=== PATIENT | female | born 1935 | race Caucasian/White ===

== ENCOUNTER 2018-10-30 14:19 | Emergency (ER) | payer OTHER ==
[~2018-10-30] VITALS: Ht 157.5 cm; Wt 68.0 kg
[2018-10-30 14:24] VITALS: Ht 157.5 cm; Wt 68.0 kg
--- NOTE | 2018-10-30 14:50 | ERD ---
ER Documentation Chief Complaint Chief Complaint dizziness since yesterday HPI The patient is a 83-year-old female, presenting to the ER because of dizziness last night when she laid down, questionable whether she passed out for a second. She denies similar symptom previously, complains of sensation of the room spinning, denies seizure, headache, neck pain, chest pain, dyspnea, abdominal pain, vomiting, dysuria, diarrhea. She does not smoke nor drink Past medical history: Hypertension Past surgical history: ROS All systems reviewed and are negative except as per history of present illness. Medications Home Meds Active Scripts Meclizine Hcl* (Antivert*) 12.5 Mg Tab, 25 MG PO Q6H PRN for DIZZINESS, #20 TAB Prov:JAZ BOYLE MD 10/30/18 Reported Medications Lisinopril* (Lisinopril*) 10 Mg Tablet, 10 MG PO DAILY, #30 TAB 10/30/18 Allergies Allergies: Coded Allergies: No Known Allergy (Unverified , 10/30/18) Physical Exam Vitals Vital Signs Date Temp Pulse Resp B/P (MAP) Pulse Ox O2 O2 Flow FiO2 Time Delivery Rate 10/30/18 52 20 153/64 99 Room Air 17:33 (93) 10/30/18 97.6 56 18 142/62 98 15:17 (88) 10/30/18 97.6 60 18 165/72 98 14:24 (103) Physical Exam Const: No acute distress. Head: Atraumatic. Eyes: Normal Conjunctiva. ENT: Normal External Ears, Nose and Mouth. Neck: Full range of motion. No meningismus. Resp: Clear to auscultation bilaterally. Cardio: Regular rate and rhythm. Abd: Soft, non distended, normal bowel sounds, non tender. Skin: No petechiae or rashes. Back: No midline or flank tenderness. Ext: No cyanosis, or edema. Neur: Awake and alert. No focal deficit Psych: Normal Mood and Affect. Result Diagram: 10/30/18 1512 10/30/18 1512 Results 24 hrs Laboratory Tests Test 10/30/18 15:12 10/30/18 15:15 White Blood Count 9.7 10^3/ul Red Blood Count 4.35 10^6/ul Hemoglobin 13.2 g/dl Hematocrit 39.8 % Mean Corpuscular Volume 91.5 fl Mean Corpuscular Hemoglobin 30.3 pg Mean Corpuscular Hemoglobin Concent 33.2 g/dl Red Cell Distribution Width 12.9 % Platelet Count 181 10^3/UL Mean Platelet Volume 10.7 fl Immature Granulocytes % 0.500 % Neutrophils % 68.3 % Lymphocytes % 21.1 % Monocytes % 9.2 % Eosinophils % 0.7 % Basophils % 0.2 % Nucleated Red Blood Cells % 0.0 /100WBC Immature Granulocytes # 0.050 10^3/ul Neutrophils # 6.6 10^3/ul Lymphocytes # 2.0 10^3/ul Monocytes # 0.9 10^3/ul Eosinophils # 0.1 10^3/ul Basophils # 0.0 10^3/ul Nucleated Red Blood Cells # 0.0 10^3/ul Sodium Level 144 mmol/L Potassium Level 3.9 mmol/L Chloride Level 107 mmol/L Carbon Dioxide Level 27 mmol/L Anion Gap 10 Blood Urea Nitrogen 17 mg/dl Creatinine 0.83 mg/dl Est Glomerular Filtrat Rate mL/min mL/min Glucose Level 120 mg/dl Calcium Level 8.9 mg/dl Troponin I < 0.012 ng/ml Bedside Glucose 105 mg/dL Current Medications Medications Dose Sig/Madi Start Time Status Last (Trade) Ordered Route PRN Stop Time Admin Dose Reason Admin Meclizine 25 mg ONCE ONCE 10/30/18 DC 10/30/18 HCl PO 15:30 15:12 (Antivert) 10/30/18 15:31 Procedures/[place] [address] Radiology Main Line: [phone] DIAGNOSTIC IMAGING REPORT Patient: GARFIELD ABDALLA : 1935 Age: 83 Sex: F MR #: [id number] DOS: 10/30/18 1506 Ordering MD: JAZ BOYLE MD Location: E/R Room/Bed: PROCEDURE: CT BRAIN WITHOUT CONTRAST. CLINICAL INDICATION: Syncope TECHNIQUE: A CT of the brain was performed on a multidetector high-resolution CT scanner utilizing axial imaging from the skull base through the vertex without IV contrast. Multiplanar reformatted images were made. Images were reviewed on a PACS workstation. The CTDIvol is 39.6 mGy and the DLP is 634.2 mGycm. One or more of the following dose reduction techniques were used: - Automated exposure control. - Adjustment of the mA and/or kV according to patient size. - Use of iterative reconstruction technique. DICOM images are available. COMPARISON: None FINDINGS: The posterior fossa structures are unremarkable. The sheldon, midbrain, and medulla appear to be with normal limits. There is no evidence of acute intracranial hemorrhage, infarct, or extra-axial fluid collection. No gross mass effect or midline shift. Cerebral sulci, cisternal spaces, and ventricles are prominent. Mild periventricular/subcortical white matter lucencies are noted. There are intracranial atherosclerotic calcifications. The visualized paranasal sinuses are clear. The mastoid air cells are well- aerated. The calvarium is unremarkable. IMPRESSION: 1. No evidence of acute intracranial hemorrhage, infarct, or extra-axial fluid collection. 2. 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 3. Intracranial atherosclerotic disease. 4. If clinical symptoms persist, consider follow-up MRI of the brain. RPTAT: AARR Physician Rosanna Date Time Electronically viewed and signed by Physician Rosanna on 10/30/2018 16:13 JL/ CC: JAZ BOYLE MD [id number] EKG: Read by emergency physician Rate/Rhythm: Sinus bradycardia 53 beats/min QRS, ST, T-waves: No ST elevation, no T inversion, sinus arrhythmia, LAD Impression: Abnormal EKG MEDICAL MAKING DECISION: The patient is a 83-year-old female, presenting with acute dizziness of unclear etiology, treated with Antivert 25 mg p.o. for dizziness with good response, is stable for outpatient follow-up The differential diagnoses considered include but are not limited to central causes such as cerebellar infarct, cerebellar hemorrhage, cerebellar tumor, acoustic neuroma, peripheral causes such as benign positional vertigo, labyrinthitis, medication, Meniere's disease. Departure Diagnosis: Primary Impression: Dizziness Condition: Good Comments She was discharged with Antivert I discussed the findings with the patient. I advised the patient to follow-up with the primary physician in about 1-2 days, sooner if needed and return if any concern. Disclaimer: Inadvertent spelling and grammatical errors are likely due to EHR/dictation software use and do not reflect on the overall quality of patient care. Also, please note that the electronic time recorded on this note does not necessarily reflect the actual time of the patient encounter. JAZ BOYLE MD Oct 30, 2018 14:50
[2018-10-30] MEDS ORDERED: MECLIZINE 12.5 MG TAB PO ONE (15:30)
[2018-10-30] MEDS ORDERED: LISI10TA2 PO (15:49)
[2018-10-30] MEDS ORDERED: MECL12.574 PO (17:13)
[2018-10-30 17:33] VITALS: BP 153/64; PULSE 52; RESP 20
== END 2018-10-30 17:44 | disposition home or self-care (01) ==
LOC: E/R 14:19
DX: R42 Dizziness and giddiness (principal); I10 Essential (primary) hypertension; R40.2142 Coma scale, eyes open, spontaneous, at arrival to emergency department; R40.2362 Coma scale, best motor response, obeys commands, at arrival to emergency department; R40.2252 Coma scale, best verbal response, oriented, at arrival to emergency department
CPT/HCPCS: 36415; 70450; 80048; 82962; 84484; 85025; 93005

== ENCOUNTER 2018-11-02 22:24 | Emergency (ER) | payer OTHER ==
[~2018-11-02] VITALS: Ht 157.5 cm; Wt 67.9 kg
[~2018-11-02 22:24] MED LIST: LISI10TA2 PO; MECL12.574 PO
[2018-11-02 22:34] VITALS: Ht 157.5 cm; Wt 67.9 kg
--- NOTE | 2018-11-03 04:06 | ERD ---
ER Documentation Chief Complaint Chief Complaint non-radiating CP, hypertension, dizziness X 4 days HPI This is an 83-year-old female with a past medical history of hypertension who is presenting with symptoms concerning for near syncope. The patient reports 4 days of a waxing and waning sensation like she is going to pass out. The patient reports that these episodes last a few seconds before resolving on their own. She feels that they are related to her elevated blood pressure. The patient also endorses chest palpitations and chest pressure associated with these symptoms as well. The patient has had some nausea but no vomiting. The patient reports that she has had a few episodes where she felt like the room was spinning, but she also felt lightheaded and felt her vision going out. The patient's son has witnessed some of these episodes and believes that she has passed out at times. 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 She does not endorse any other focal deficits. She has no other weakness or numbness or tingling to the face or extremities. The patient was evaluated on October 30 for similar symptoms. She is found to have sinus bradycardia, but the work-up was otherwise negative. The patient CT did not reveal any evidence of cerebral ischemia or intracranial hemorrhage or mass. There was evidence of chronic microvascular angiopathy and intracranial atherosc lerotic disease, but there is no evidence of any large vessel occlusion. The patient's blood work was likewise unremarkable. The patient's symptoms have been resolved in the emergency department. The patient denies feeling sick recently. The patient denies fever or chills. The patient has had no headache or vision changes. The patient does not endorse neck or back pain. The patient has had no trouble breathing orthopedic pain. The patient denies nausea or vomiting. The patient denies abdominal pain. The patient denies changes to bowel movements or urination. ROS All systems reviewed and are negative except as per history of present illness. Medications Home Meds Reported Medications Lisinopril* (Lisinopril*) 10 Mg Tablet, 10 MG PO DAILY, #30 TAB 10/30/18 Discontinued Scripts Meclizine Hcl* (Antivert*) 12.5 Mg Tab, 25 MG PO Q6H PRN for DIZZINESS, #20 TAB Prov:JAZ BOYLE MD 10/30/18 Allergies Allergies: Coded Allergies: No Known Allergy (Unverified , 11/03/18) PMhx/Soc History of Surgery: No Anesthesia Reaction: No Hx Neurological Disorder: Yes (FACIAL PALSY) Hx Respiratory Disorders: No Hx Cardiac Disorders: Yes (HTN) Hx Psychiatric Problems: Yes (DEPRESSION) Hx Miscellaneous Medical Probl: No Hx Alcohol Use: No Hx Substance Use: No Hx Tobacco Use: No Smoking Status: Never smoker FmHx Family History: No diabetes Physical Exam Vitals Vital Signs Date Temp Pulse Resp B/P (MAP) Pulse Ox O2 O2 Flow FiO2 Time Delivery Rate 11/03/18 65 16 140/73 97 Room Air 03:05 (95) 11/02/18 97.9 56 18 203/96 96 22:34 (131) Physical Exam Const: No apparent distress, well-developed, well-nourished Head: Normocephalic, Atraumatic Eyes: Normal Conjunctiva. Extraocular movements intact. Pupils equal, round and reactive to light. No nystagmus. ENT: Normal External Ears, Nose and Mouth. Neck: Full range of motion. No meningismus. Resp: Clear to auscultation bilaterally, No wheezes, rales or rhonchi Cardio: Regular rhythm. Bradycardia. No murmurs, rubs or gallops Abd: Soft, non tender, non distended. Normal bowel sounds Skin: No petechiae or rashes Back: No midline tenderness. No CVA tenderness Ext: No cyanosis, or edema Neur: Awake and alert, oriented 4. Cranial nerves intact. No facial droop. Normal strength, sensation and coordination. Psych: Normal Mood and Affect Result Diagram: 11/03/18 0001 11/03/18 0001 Results 24 hrs Laboratory Tests Test 11/03/18 00:01 White Blood Count 8.3 10^3/ul Red Blood Count 4.31 10^6/ul Hemoglobin 13.4 g/dl Hematocrit 39.9 % Mean Corpuscular Volume 92.6 fl Mean Corpuscular Hemoglobin 31.1 pg Mean Corpuscular Hemoglobin Concent 33.6 g/dl Red Cell Distribution Width 12.5 % Platelet Count 174 10^3/UL Mean Platelet Volume 10.6 fl Immature Granulocytes % 0.500 % Neutrophils % 63.1 % Lymphocytes % 26.3 % Monocytes % 8.0 % Eosinophils % 1.9 % Basophils % 0.2 % Nucleated Red Blood Cells % 0.0 /100WBC Immature Granulocytes # 0.040 10^3/ul Neutrophils # 5.3 10^3/ul Lymphocytes # 2.2 10^3/ul Monocytes # 0.7 10^3/ul Eosinophils # 0.2 10^3/ul Basophils # 0.0 10^3/ul Nucleated Red Blood Cells # 0.0 10^3/ul Prothrombin Time 13.0 Sec Prothrombin Time Ratio 1.0 INR International Normalized Ratio 0.97 Sodium Level 142 mmol/L Potassium Level 4.1 mmol/L Chloride Level 107 mmol/L Carbon Dioxide Level 26 mmol/L Anion Gap 9 Blood Urea Nitrogen 25 mg/dl Creatinine 0.96 mg/dl Est Glomerular Filtrat Rate mL/min mL/min Glucose Level 106 mg/dl Calcium Level 9.3 mg/dl Creatine Kinase 38 IU/L Creatinine Kinase MB (Mass) 0.47 ng/ml Troponin I < 0.012 ng/ml B-Type Natriuretic Peptide 134 PG/ML Procedures/MDM MDM The patient's presentation warrants further investigation. Previous medical records, if available, were reviewed. LABS The patient's laboratory testing was obtained and reviewed. No emergent treatment was required unless described below. CBC: No E/o systemic infection or severe anemia or thrombocytopenia Chemistry: No E/o severe acidosis or alkalosis or renal failure or diabetic ketoacidosis PT/INR: No E/o significant coagulopathy Troponin: No E/o acute ischemia BNP: No E/o heart failure EKG EKG read by me: Rate/Rhythm: Regular rate and rhythm at a rate of 67 beats per minute with a sinus arrhythmia. Intervals: Normal [place]: Left axis deviation Impression: Nonspecific repolarization changes without evidence of acute ischemia. Sinus arrhythmia Repeat EKG read by me: Rate/Rhythm: Sinus bradycardia at 47 bpm Intervals: Normal [place]: Left axis deviation Impression: Nonspecific repolarization changes without evidence of isch emia. Sinus bradycardia IMAGING Imaging and Radiology interpretation reviewed. CXR FINDINGS: Low lung volumes. Normal cardiac and mediastinal configuration. Aortic calcified plaque present. No CHF or hilar enlargement. Lungs are clear. IMPRESSION: Low lung volumes. No acute disease. Electronically viewed and signed by Physician Lisbeth on 11/03/2018 00:48 TREATMENT/DISPOSITION The patient returns to the emergency department for subsequent episodes of near syncope and syncope today. In the emergency department, the patient has a reassuring physical exam. The patient is not clinically orthostatic. The patient is not dizzy. I have decreased suspicion for vertigo. The patient has no signs of emergent or symptomatic anemia. The patient does not have any emergent electrolyte or metabolic emergencies. I have decrease suspicion for a thyroid disorder. The patient is not toxic appearing. I have decreased suspicion for an infectious etiology of symptoms. The patient's EKG and troponin are reassuring. I have low suspicion for acute coronary syndrome. I do not see evidence of any emergent cardiac arrhythmia, which includes but is not limited to heart block, Brugada syndrome or WPW. The patient is bradycardic, but the patient's blood pressure remains stable. I doubt this to be the etiology of her symptoms today. The patient has no heart murmurs or rales. There is no evidence of cardiomegaly on exam or chest xray. I have low suspicion for hypertrophic cardiomyopathy. I do not see evidence of CHF. The patient does not endorse any chest or pleuritic pain. The history is negative for bleeding or clotting disorders. The patient has not been involved in any recent prolonged trips or surgeries or hospitalizations. The patient has no calf tenderness or swelling. I have decreased suspicion for PE as the etiology of symptoms. The patient has no focal deficits. The neurologic exam is reassuring. I have decreased suspicion for cerebral ischemia. There was no trauma or injury. There is no personal or family history of cerebral aneurysm. I have decreased suspicion for SAH or other ICH. I have low suspicion for temporal arteritis, cavernous venous thrombosis, subdural hematoma, epidural hematoma, meningitis. The patient had a CT scan completed 4 days ago that was unremarkable for any acute pathology. The patient does have chronic microvascular disease and athe rosclerosis intracranially, but there is no evidence of CVA on exam. The patient's coordination is normal. She has good rapid alternating movements. She is ambulatory without issue. I do not suspect a posterior circulation CVA that could lead to dizziness. The [place] Syncope Rule was applied and the patient was found to be low risk for a serious outcome. DISCHARGE Upon reevaluation of the patient, symptoms have improved. No emergent diagnoses were identified. Given that this is the patient's second visit to the emergency department, I did offer admission to the patient. The risks and benefits of admission versus discharge were discussed with the family and the patient. Shared medical decision-making was enacted, and the patient preferred to discharge with close follow-up with her primary care physician. At this time, I feel that this is appropriate. The patient understands that if her symptoms do continue to persist, she is to return to the emergency department for likely admission. The patient was instructed to follow-up with a primary care physician in 1-3 days. The patient will be given strict precautions with which to return to the emergency department. Prescriptions: None The patient's blood pressure was elevated at greater than 120/80 while in the emergency department. The patient was otherwise stable with no evidence of hypertensive urgency or emergency. The patient does not require admission for blood pressure control. I have discussed with the patient the risks of hypertension. I have instructed the patient to return to the ER for any new or worsening symptoms including chest pain, shortness of breath, headache, blurred vision, confusion, nausea, vomiting or LOC. I have advised the patient to follow up with the primary care physician for outpatient monitoring and treatment for hypertension in 1-3 days. Disclaimer: Inadvertent spelling and grammatical errors are likely due to EHR/dictation software use and do not reflect on the overall quality of patient care. Note that the electronic time recorded on this note does not necessarily reflect the actual time of the patient encounter. Departure Diagnosis: Primary Impression: Near syncope Additional Impressions: Elevated BUN Bradycardia Condition: Stable Patient Instructions: Bradycardia, Near Syncope, Unknown Additional Instructions: Thank you for for coming to [facility] for your care today. Please ask your nurse or provider if you have questions about your care today and do not leave until all your questions have been answered. Please use any medications given as directed and follow-up with your doctor (or the doctor you were referred to) in the next 1-3 days. If you do not have a primary care doctor you may follow up at the [facility] (listed below). You may also use motrin and tylenol as needed for fever and/or pain unless instructed otherwise by your provider or nurse. Indications for more urgent follow-up have been discussed, but you may return to the Emergency Department at ANY time for any worrisome or worsening symptoms. If you have abdominal pain, please know that no test or exam you received is perfect and you should follow up within 8 hours for continued pain. If you had any imaging studies today, such as an X-Ray or CT Scan, these studies will be reviewed later by a radiologist. You will be called if there are important findings that were not identified today, so make sure the contact information you provided at registration is correct. If you received any narcotic pain control medicine today, such as Vicodin, Morphine or Dilaudid, your coordination and judgment may be affected for a number of hours. Please do not drive or operate heavy machinery, and you may want someone to assist you at home. If you were given a prescription for narcot ic medication, be aware that it is very addictive- use sparingly and only if necessary. PLEASE SEEK FURTHER EVALUATION AND MANAGEMENT AT YOUR DOCTORS OFFICE WITHIN THE NEXT 1-3 DAYS. IT IS YOUR RESPONSIBILITY TO MAKE AN APPOINTMENT FOR FOLOW-UP CARE. IF YOU HAVE A PRIMARY DOCTOR, PLEASE CALL THEIR OFFICE TO SCHEDULE AN APPOINTMENT FOR FOLLOW UP. IF YOU DO NOT HAVE A PRIMARY DOCTOR YOU CAN CALL OUR PHYSICIAN REFERRAL HOTLINE AT IF YOU CAN NOT AFFORD TO SEE A PHYSICIAN YOU CAN CHOSE FROM THE FOLLOWING [facility] CLINICS: [facility] [address] [facility] [facility] [address] [facility] [facility] [address] [facility] [address]. [facility] [address] [facility] [facility]. [address] TITO VALERA MD Nov 03, 2018 04:06
[2018-11-03 05:08] VITALS: BP 147/83; PULSE 55; RESP 16
== END 2018-11-03 05:09 | disposition home or self-care (01) ==
LOC: E/R 22:24
DX: R55 Syncope and collapse (principal); R00.1 Bradycardia, unspecified; R79.89 Other specified abnormal findings of blood chemistry; I10 Essential (primary) hypertension
CPT/HCPCS: 36415; 71045; 80048; 82550; 82553; 83880; 84484; 85025; 85610; 93005